=== PATIENT | male | born 2000 | race Two or more races ===

== ENCOUNTER 2021-01-05 12:23 | Emergency (ER) | payer OTHER ==
[~2021-01-05] VITALS: Ht 167.6 cm; Wt 106.8 kg
[2021-01-05] MEDS ORDERED: KETAMINE HCL 500 MG/10 ML VIAL. ONE (12:35)
[2021-01-05] MEDS ORDERED: KETAMINE HCL 500 MG/10 ML VIAL. IV ONE (12:45)
--- NOTE | 2021-01-05 12:58 | RAD ---
EXAM: Right ankle, 3 views. HISTORY: Trauma. COMPARISON: None. FINDINGS: 3 views of the right ankle are obtained. There is talonavicular and suspected calcaneonavic ular dislocation. There is a small fracture fragment adjacent to the medial malleolus. The ankle mort ise intact. There is diffuse soft tissue swelling. IMPRESSION: Talonavicular and calcaneonavicular dislocation with small associated fracture fragment a djacent to the medial malleolus. This is not well assessed due to overlying osseous structures and im age projection. This can be better assessed with a CT. Electronically signed by: Gemma Laird MD (01/05/2021 12:55 PM) [id number]
--- NOTE | 2021-01-05 13:06 | RAD ---
ADDENDUM #1 Addendum: Correction There is a chip or evulsion fracture at the tip of the medial malleolus. IMPRESSION: 1. Fracture medial malleolus. Electronically signed by: Rafi Clayton MD (01/05/2021 1:44 PM) [facility] ORIGINAL REPORT Right ankle 2 views. HISTORY: Pain, post reduction 2 views were taken of the right ankle. There is been a reduction of the subtalar dislocation. There i s a small chip or evulsion fracture at the tip of the lateral malleolus. CT may be of benefit. There is a possible fracture at the confluence of the calcaneus, navicular and cuboid versus overlapping st ructures. IMPRESSION: 1. Reduction of previous dislocation. 2. Fracture at the lateral malleolus. 3. Possible small fracture at the tarsal bones. Electronically signed by: Rafi Clayton MD (01/05/2021 1:04 PM) [facility]
--- NOTE | 2021-01-05 13:23 | PHYS DOC ---
General Adult EDM: Chief Complaint: ANKLE PROBLEM HPI: HPI: 20-year-old male presents with right ankle pain and likely dislocation. 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 He landed on his right ankle and it rolled medially. He had immediate pain. When he looked down his ankle was stuck rotated to the medial side. An ambulance was called and he was brought by EMS. On arrival patient had good distal pulses. He had 100 mcg of fentanyl and his pain was well controlled. He has had sprained ankles in the past but never an ankle dislocation. It was not immediately obvious if it was dislocated with or without a fracture. Patient denies any other injuries. Review of Systems: Review of Systems: Constitutional: Denies fever or chills Eyes: Denies change in visual acuity HENT: Denies nasal congestion or sore throat Respiratory: Denies cough or shortness of breath Cardiovascular: Denies chest pain or edema GI: Denies abdominal pain, nausea, vomiting, bloody stools or diarrhea : Denies dysuria Musculoskeletal: Right ankle pain Integument: Denies rash Neurologic: Denies headache, focal weakness or sensory changes Endocrine: Denies polyuria or polydipsia Lymphatic: Denies swollen glands Psychiatric: Denies depression or anxiety Current Medications: Current Meds: Current Medications Medications (Trade) Dose Ordered Sig/[facility] Start Time Stop Time Status Last Admin Dose Admin Ketamine HCl (Ketamine) 500 mg STK-MED ONCE 01/05/21 12:35 01/05/21 12:36 DC Allergies: Allergies: Allergies Coded Allergies Type Severity Reaction Last Updated Verified No Known Drug Allergies 01/05/21 No Physical Exam: PE: Constitutional: Well developed, well nourished, no acute distress, non-toxic appearance. [] HENT: Normocephalic, atraumatic, bilateral external ears normal, oropharynx moist, no oral exudates, nose normal. [] Eyes: PERRLA, EOMI, conjunctiva normal, no discharge. [] Neck: Normal range of motion, no tenderness, supple, no stridor. [] Cardiovascular:Heart rate regular rhythm, no murmur [] Lungs & Thorax: Bilateral breath sounds clear to auscultation [] Abdomen: Bowel sounds normal, soft, no tenderness, no masses, no pulsatile masses. [] Skin: Warm, dry, no erythema, no rash. [] Back: No tenderness, no CVA tenderness. [] Extremities: Right ankle dislocation with foot medial, strong pedal pulse, sensation intact. Skin intact. [] Neurologic: Alert and oriented X 3, normal motor function, normal sensory function, no focal deficits noted. [] Psychologic: Affect normal, judgement normal, mood normal. [] Current Patient Data: Vital Signs: Vital Signs Date Time Temp Pulse Resp B/P (MAP) Pulse Ox O2 Delivery O2 Flow Rate FiO2 01/05/21 12:45 97 18 100 EKG: EKG: [] Radiology/Procedures: Radiology/Procedures: [] Impressions: EXAM: Right ankle, 3 views. HISTORY: Trauma. COMPARISON: None. FINDINGS: 3 views of the right ankle are obtained. There is talonavicular and suspected calcaneonavicular dislocation. There is a small fracture fragment adjacent to the medial malleolus. The ankle mortise intact. There is diffuse soft tissue swelling. IMPRESSION: Talonavicular and calcaneonavicular dislocation with small associated fracture fragment adjacent to the medial malleolus. This is not well assessed due to overlying osseous structures and image projection. This can be better assessed with a CT. Electronically signed by: Gemma Laurent MD (01/05/2021 12:55 PM) [id number] DICTATED AND SIGNED BY: GEMMA LAURENT MD DATE: 01/05/21 1253 CC: JOSE BRENNAN DO; PCP,NO ~MTH0 0 Right ankle 2 views. HISTORY: Pain, post reduction 2 views were taken of the right ankle. There is been a reduction of the subtalar dislocation. There is a small chip or evulsion fracture at the tip of the lateral malleolus. CT may be of benefit. There is a possible fracture at the confluence of the calcaneus, navicular and cuboid versus overlapping structures. IMPRESSION: 1. Reduction of previous dislocation. 2. Fracture at the lateral malleolus. 3. Possible small fracture at the tarsal bones. Electronically signed by: Rafi Clayton MD (01/05/2021 1:04 PM) [facility] DICTATED AND SIGNED BY: RAFI CLAYTON MD DATE: 01/05/21 1300 CC: BRENNAN,JOSE DO; PCP,NO ~MTH0 0 Heart Score: C/O Chest Pain: N/A Risk Factors: Risk Factors: DM, Current or recent (<one month) smoker, HTN, HLP, family history of CAD, obesity. Risk Scores: Score 0 - 3: 2.5% MACE over next 6 weeks - Discharge Home Score 4 - 6: 20.3% MACE over next 6 weeks - Admit for Clinical Observation Score 7 - 10: 72.7% MACE over next 6 weeks - Early Invasive Strategies Course & Med Decision Making: Course & Med Decision Making Pertinent Labs and Imaging studies reviewed. (See chart for details) The patient's ankle was at least dislocated by my initial examination. I discussed ketamine sedation to reduce the ankle. An x-ray was performed prior to the procedure. It was indeed dislocated with possible small fractures. See radiology official read for more details. The patient gave verbal and written permission for conscious sedation with ketamine. See procedure note for more details. After reduction a splint was placed on the patient and I have referred him to orthopedics for follow-up. He is stable for discharge at this time. Procedural Note: I obtained verbal and written consent from the patient for conscious sedation reduction of the right ankle. He was informed that ketamine would be used. All questions were answered to his satisfaction. A prereduction x-ray was taken. Dislocation was confirmed. I personally gave the patient 200 mg of ketamine by IV followed by 10 mL flush. Once the patient was sedated, I applied medial and then distal and then lateral forces on the ankle and had a successful reduction. There were no complications. Postreduction film was completed. The ankle was splinted. The patient woke up without incident. [] Dragon Disclaimer: Dragon Disclaimer: This electronic medical record was generated, in whole or in part, using a voice recognition dictation system. Procedural Sedation Proc Sed Indication: [] Right ankle dislocation Consent: [] And written consent was obtained from the patient. Physician Involvement: The attending physician was present and supervising this procedure. Pre-Sedation Documentation and Exam: [] Completed. See above. Airway Assessment: [] Mallampati class III Prior History of Anesthesia Complications: [] None. ASA Classification: []class 1 Sedation/ Anesthesia Plan: [] 2 mg/kg of ketamine. Medications Used: [] 200 mg of ketamine. Monitoring and Safety: The patient was placed on a cardiac exercise specialist and vital signs, pulse oximetry and level of consciousness were continuously evaluated throughout the procedure. The patient was closely monitored until recovery from the medications was complete and the patient had returned to baseline status. Respiratory therapy was on standby at all times during the procedure. (The following sections must be completed) Post-Sedation Vital Signs: [EDM.VS] see chart. Post-Sedation Exam: [] The patient had no complications during or after sedation. He woke up without incident and was fully aware of his surroundings. Complications: [] None. Vital Signs Vital Signs Date Time Temp Pulse Resp B/P (MAP) Pulse Ox O2 Delivery O2 Flow Rate FiO2 01/05/21 12:45 97 18 100 Departure Departure: Impression: Primary Impression: Dislocation of right ankle joint, initial encounter Additional Impression: Ankle fracture, right Qualified Codes: S82.891A - Other fracture of right lower leg, initial encounter for closed fracture Disposition: 01 HOME / SELF CARE / HOMELESS Condition: IMPROVED Referrals: PCPJUAN (PCP) Patient Instructions: Ankle Dislocation, [id number] JOSE BRENNAN DO Jan 05, 2021 13:23
[2021-01-05] MEDS ORDERED: HYDR-2759 PO (13:48)
[2021-01-05] MEDS ORDERED: ONDANSETRON ODT 4 MG TAB.RAPDIS PO ONE (14:00)
[2021-01-05 15:00] VITALS: BP 131/78
== END 2021-01-05 15:15 | disposition home or self-care (01) ==
LOC: ER 12:23
DX: S93.04XA Dislocation of right ankle joint, initial encounter (principal); S82.61XA Displaced fracture of lateral malleolus of right fibula, initial encounter for closed fracture; S82.51XA Displaced fracture of medial malleolus of right tibia, initial encounter for closed fracture; W18.49XA Other slipping, tripping and stumbling without falling, initial encounter; Y93.89 Activity, other specified; Y92.89 Other specified places as the place of occurrence of the external cause; Y99.8 Other external cause status
CPT/HCPCS: 27788; 73600; 99285; Q0162